=== PATIENT | female | born 2000 | race Caucasian/White ===

== ENCOUNTER 2021-11-09 22:10 | Emergency (ER) | payer OTHER | END 2021-11-09 23:14 | disposition home or self-care (01) | LOC: JP.ED 22:10 | DX: S69.92XA Unspecified injury of left wrist, hand and finger(s), initial encounter (principal); R20.2 Paresthesia of skin; W19.XXXA Unspecified fall, initial encounter; Y99.0 Civilian activity done for income or pay | CPT/HCPCS: 73130-LT; 99282; 99283-25 ==